=== PATIENT | male | born 1960 | race Asian ===

== ENCOUNTER 2021-08-19 09:47 | Day surgery (SDC) | payer OTHER ==
[2021-08-16 13:19] LABS: COVID AG,FIA SOURCE NASOPHARYNGEAL
[~2021-08-19] VITALS: Ht 165.1 cm; Wt 81.8 kg
[~2021-08-19 09:47] MED LIST: ACET-66 PO; AMLO-257 PO; AMLO5TAB66 PO; ASPI-1450 PO; ATEN-72 PO; ATOR40TA71 PO; METF-890 PO; METO50 PO; OMEP1CAP24 PO; RIVA15TA PO; SACU1TAB PO; SIMV10TA97 PO; SODIUM CHLORIDE 0.9% 1,000 ML ONE
[2021-08-19] MEDS ORDERED: SODIUM CHLORIDE 0.9% 1,000 ML IV ONE (10:00)
[2021-08-19 11:06] LABS: GLUCOMETER DEV NAME(LOC) SDS.; GLUCOSE,POINT OF CARE 106 MG/DL (70-110)
[2021-08-19] MEDS ORDERED: PROPOFOL 1% 20 ML VIAL IVP ONE (12:00)
[2021-08-19] MEDS ORDERED: LIDOCAINE/PF 2% 5 ML VIAL IM ONE (12:00)
[2021-08-19] MEDS ORDERED: SODIUM CHLORIDE 0.9% 1,000 ML ONE (12:47)
== END 2021-08-19 13:25 | disposition home or self-care (01) ==
LOC: SURGERY 09:47
PROVIDERS: ATTEND Student in an Organized Health Care Education/Training Program
DX: Z12.11 Encounter for screening for malignant neoplasm of colon (principal); K64.8 Other hemorrhoids; K57.30 Diverticulosis of large intestine without perforation or abscess without bleeding; I10 Essential (primary) hypertension; E11.9 Type 2 diabetes mellitus without complications; I48.91 Unspecified atrial fibrillation
CPT/HCPCS: 45378; 82962; 87426; C9803; J2704; J3490; J7030